=== PATIENT | male | born 1950 | race Caucasian/White ===

== ENCOUNTER 2019-06-01 17:36 | Inpatient (IN) | payer MEDICARE ==
[~2019-06-01] VITALS: Ht 175.3 cm; Wt 77.1 kg
--- NOTE | 2019-06-01 18:03 | NUR ---
OCCULT BLOOD STOOL SAMPLE NEGATIVE. EDP AWARE.
[2019-06-01 18:44] LABS: BASOPHILS 0.1 % (0-2); EOSINOPHILS 0.2 % (0-7); HEMATOCRIT 29.3 % (42.0-54.0); HEMOGLOBIN 9.8 g/dL (13.5-17.5); IMMATURE GRANULOCYTES 0.3 % (0-5); LYMPHOCYTES 6.4 % (15-50); MCH 31.6 pg (26.0-34.0); MCHC 33.4 g/dL (31.0-37.0); MCV 94.5 fL (80.0-100.0); MEAN PLATELET VOLUME 9.8 fL (7.4-10.4); PLATELET COUNT 309 10x3/uL (130-400); RDW 13.5 % (11.5-14.5); WBC 15.4 10x3/uL (4.8-10.8)
[2019-06-01 18:54] LABS: CALC OSMOLALITY 286 mosm/kg (275-300); CALCIUM 8.9 mg/dL (8.5-10.1); CARBON DIOXIDE 21.8 mmol/L (21.0-32.0); CHLORIDE - SERUM 104 mmol/L (98-107); CREATININE - SERUM 2.8 mg/dL (0.6-1.3); GLUCOSE 101 mg/dL (74-106); POTASSIUM - SERUM 4.7 mmol/L (3.5-5.1); SODIUM 139 mmol/L (136-145); UREA NITROGEN 37 mg/dL (7-18); eGFR NON AFRICAN AMERICAN 24 mL/min (90-120)
--- NOTE | 2019-06-01 18:56 | NUR ---
PT LEAVING ED FOR ORDERED TEST, TRANSPORTED VIA STRETCHER. NO SIGNS OF DISTRESS NOTED WHEN LEAVING.
--- NOTE | 2019-06-01 19:07 | NUR ---
HAND OFF REPORT GIVEN TO SANTOS GOMEZ.
[2019-06-01 19:09] LABS: ALBUMIN 3.6 g/dL (3.4-5.0); ALKALINE PHOSPHATASE 86 U/L (30-120); ALT (SGPT) 60 U/L (10-68); AMYLASE - SERUM 34 U/L (25-115); BILIRUBIN - TOTAL 0.39 mg/dL (0.2-1.3); CREATINE KINASE 94 UL (21-232); LIPASE 77 U/L (73-393); PROTEIN - SERUM 7.6 g/dL (6.4-8.2)
--- NOTE | 2019-06-01 19:40 | NUR ---
PT RETURNED FROM CT VIA STRETCHER.
--- NOTE | 2019-06-01 19:45 | NUR ---
US AT PT BEDSIDE/
--- NOTE | 2019-06-01 20:05 | NUR ---
PT UPDATED ON PLAN OF CARE. PT DENIES NEEDS AT THIS TIME.
[2019-06-01 20:06] VITALS: BP 134/68
[2019-06-01 21:00] VITALS: BP 132/74
--- NOTE | 2019-06-01 21:40 | NUR ---
PT RESTING ON BED. NO S/S OF ACUTE DISTRESS NOTED. PT WATCHING TV AND DENIES NEEDS AT THIS TIME.
[2019-06-01 22:00] VITALS: BP 138/78
--- NOTE | 2019-06-01 23:07 | NUR ---
RECIEVED TO FLOOR VIA WHEEL CHAIR, ACCOMPANIED BY STAFF. DENIES PAIN/WEAKNESS. A&O X 4, ANSWERS QUESTIONS APPROPRIATELY. POSESY MAT IN USE, WILL CONTINUE PLAN OF CARE.
[2019-06-01 23:27] VITALS: BP 128/74; BMI 25.1
--- NOTE | 2019-06-01 23:35 | NUR ---
ADMISSION ASSESSMENT COMPLETE. CARE PLANS POPULATED AND PRIORITIZED. PT RESTING AT THIS TIME IN SUPINE POSITION. WILL MONITOR FOR NEEDS.
[2019-06-02 04:30] VITALS: BP 129/68
[2019-06-02 06:41] LABS: BASOPHILS 0.2 % (0-2); EOSINOPHILS 1.5 % (0-7); HEMATOCRIT 27.8 % (42.0-54.0); HEMOGLOBIN 9.2 g/dL (13.5-17.5); IMMATURE GRANULOCYTES 0.3 % (0-5); LYMPHOCYTES 13.1 % (15-50); MCH 31.7 pg (26.0-34.0); MCHC 33.1 g/dL (31.0-37.0); MCV 95.9 fL (80.0-100.0); MEAN PLATELET VOLUME 9.8 fL (7.4-10.4); MONOCYTES 6.6 % (2-11); NEUTROPHILS 78.3 % (40-80); PLATELET COUNT 285 10x3/uL (130-400); RDW 13.4 % (11.5-14.5)
[2019-06-02 06:43] LABS: WBC 11.4 10x3/uL (4.8-10.8)
[2019-06-02 07:17] LABS: ALBUMIN 3.3 g/dL (3.4-5.0); ALKALINE PHOSPHATASE 77 U/L (30-120); ALT (SGPT) 51 U/L (10-68); AMYLASE - SERUM 31 U/L (25-115); BILIRUBIN - TOTAL 0.35 mg/dL (0.2-1.3); CALC OSMOLALITY 285 mosm/kg (275-300); CALCIUM 8.5 mg/dL (8.5-10.1); CARBON DIOXIDE 21.1 mmol/L (21.0-32.0); CHLORIDE - SERUM 108 mmol/L (98-107); CKMB 1.6 U/L (0.0-3.6); CREATINE KINASE 144 UL (21-232); CREATININE - SERUM 2.6 mg/dL (0.6-1.3); GLUCOSE 88 mg/dL (74-106); LIPASE 76 U/L (73-393); POTASSIUM - SERUM 4.1 mmol/L (3.5-5.1); SODIUM 140 mmol/L (136-145); UREA NITROGEN 34 mg/dL (7-18); eGFR NON AFRICAN AMERICAN 26 mL/min (90-120)
[2019-06-02 07:27] LABS: TROPONIN-I < 0.017 ng/mL (0.000-0.060)
[2019-06-02 09:04] VITALS: BP 131/52
[2019-06-02 10:46] LABS: CKMB 1.4 U/L (0.0-3.6); CREATINE KINASE 192 UL (21-232); TROPONIN-I 0.023 ng/mL (0.000-0.060)
[2019-06-02 11:47] LABS: CHOL - HDL RATIO 4.1 ratio (2.3-4.9); LDL-HDL RATIO 2.2 ratio (1.5-3.5)
[2019-06-02 13:20] LABS: BILIRUBIN NEGATIVE (NEGATIVE); GLUCOSE NEGATIVE (NEGATIVE); KETONE NEGATIVE (NEGATIVE); NITRITE NEGATIVE (NEGATIVE); UROBILINOGEN NORMAL (NORMAL)
[2019-06-02 13:34] VITALS: BP 123/77
[2019-06-02 15:00] VITALS: BMI 25.1
[2019-06-02 15:42] LABS: CKMB 1.6 U/L (0.0-3.6); CREATINE KINASE 188 UL (21-232); TROPONIN-I 0.024 ng/mL (0.000-0.060)
[2019-06-02 16:55] VITALS: BP 136/60
--- NOTE | 2019-06-02 19:19 | NUR ---
I have reviewed this patient and I concur with the Shift Assessment completed by the Licensed Practical Nurse today this shift.
[2019-06-02 19:30] VITALS: BP 115/66
[2019-06-02 21:27] LABS: CKMB 1.4 U/L (0.0-3.6); CREATINE KINASE 216 UL (21-232); TROPONIN-I 0.022 ng/mL (0.000-0.060)
[2019-06-03 00:39] VITALS: BP 120/72
[2019-06-03 05:12] VITALS: BP 119/78
[2019-06-03 05:16] LABS: BASOPHILS 0.2 % (0-2); EOSINOPHILS 2.9 % (0-7); HEMATOCRIT 31.3 % (42.0-54.0); HEMOGLOBIN 10.3 g/dL (13.5-17.5); IMMATURE GRANULOCYTES 0.3 % (0-5); MCH 31.4 pg (26.0-34.0); MCHC 32.9 g/dL (31.0-37.0); MCV 95.4 fL (80.0-100.0); MEAN PLATELET VOLUME 9.8 fL (7.4-10.4); MONOCYTES 6.1 % (2-11); NEUTROPHILS 76.5 % (40-80); PLATELET COUNT 289 10x3/uL (130-400); RBC 3.28 10x6/uL (4.20-6.10); RDW 13.4 % (11.5-14.5); WBC 11.1 10x3/uL (4.8-10.8)
[2019-06-03 05:43] LABS: ALBUMIN 3.7 g/dL (3.4-5.0); BILIRUBIN - TOTAL 0.25 mg/dL (0.2-1.3); CARBON DIOXIDE 23.2 mmol/L (21.0-32.0); CREATININE - SERUM 2.8 mg/dL (0.6-1.3); POTASSIUM - SERUM 4.2 mmol/L (3.5-5.1); PROTEIN - SERUM 7.5 g/dL (6.4-8.2)
--- NOTE | 2019-06-03 06:21 | NUR ---
I have reviewed this patient and I concur with the Shift Assessment completed by the Licensed Practical Nurse today this shift.
--- NOTE | 2019-06-03 07:40 | NUR ---
PT RESTING PEACEFULLY, LYING IN IN BED, EYES CLOSED, BREATHS EVEN REGULAR AND UNLABORED. NO SIGNS OR SYMTPOMS OF ACUTE DISTRESS NOTED AT THIS TIME. CL IN REACH, SRX2.
[2019-06-03 09:16] LABS: % SATURATION 42 % (15-55); IRON 98 ug/dl (35-150); TOTAL IRON BIND CAPACITY 228 ug/dl (260-445); UNSAT IRON BIND CAPACITY 130 ug/dl (150-375)
[2019-06-03 09:17] VITALS: BP 146/74
[2019-06-03 12:23] VITALS: BP 130/70
[2019-06-03 17:03] VITALS: BP 117/76
--- NOTE | 2019-06-03 17:27 | NUR ---
WITHOUT NEEDS.CALL LIGHT IN REACH.
--- NOTE | 2019-06-03 19:28 | NUR ---
OT NOTE: PT COMPLETED BED MOB WITH CGA. PT COMPLETED BUE AROM EXS. PT COMPLETED FACE WASH WITH SETUP. PT CONCERNED ABOUT RIDE AFTER D/C. SPOKE WITH NURSING. NURSING STATED WOULD NOT BE D/C TONIGHT. RELAYED MESSAGE TO PT. [phone] THANK YOU,EMMANUEL DUPONT
[2019-06-03 19:30] VITALS: BP 126/57
--- NOTE | 2019-06-03 20:32 | NUR ---
REC'D. CHGE OF SHIFT WALKING ROUNDS.WATCHING TV. DENIES ANY DISCOMFORT AT PRESENT TIME WILL CONTINUE TO MONITOR FOR ANY CHGES AND FOLLOW CURRENT PLAN OF CARE
[2019-06-04] VITALS: BP 149/80
[2019-06-04 05:00] VITALS: BP 152/72
--- NOTE | 2019-06-04 05:00 | NUR ---
I have reviewed this patient and I concur with the Shift Assessment completed by the Licensed Practical Nurse today this shift.
[2019-06-04 06:49] LABS: BASOPHILS 0.3 % (0-2); EOSINOPHILS 4.1 % (0-7); HEMOGLOBIN 10.1 g/dL (13.5-17.5); IMMATURE GRANULOCYTES 0.3 % (0-5); LYMPHOCYTES 11.9 % (15-50); MCH 31.2 pg (26.0-34.0); MCHC 32.6 g/dL (31.0-37.0); MCV 95.7 fL (80.0-100.0); MEAN PLATELET VOLUME 10.3 fL (7.4-10.4); MONOCYTES 5.7 % (2-11); NEUTROPHILS 77.7 % (40-80); PLATELET COUNT 261 10x3/uL (130-400); RBC 3.24 10x6/uL (4.20-6.10); RDW 13.6 % (11.5-14.5); WBC 10.5 10x3/uL (4.8-10.8)
[2019-06-04 07:09] LABS: ALBUMIN 3.2 g/dL (3.4-5.0); ANION GAP 15.9 mmol/L (8-16); BILIRUBIN - TOTAL 0.23 mg/dL (0.2-1.3); CALCIUM 9.1 mg/dL (8.5-10.1); CREATININE - SERUM 2.6 mg/dL (0.6-1.3); POTASSIUM - SERUM 3.9 mmol/L (3.5-5.1); PROTEIN - SERUM 7.1 g/dL (6.4-8.2)
--- NOTE | 2019-06-04 07:30 | NUR ---
PT RECEIVED LAYING IN BED, A/O. SCD'S ON. ASKING ABOUT IF HE GETS TO GO HOME TODAY. NO COMPLAINTS.
[2019-06-04 09:05] VITALS: BP 123/75
[2019-06-04 10:19] VITALS: Ht 175.3 cm; Wt 77.1 kg
--- NOTE | 2019-06-04 12:59 | NUR ---
OT NOTE: EDUCATION REGARDING WALKER USAGE AND SAFETY. PT ABLE TO AMB TO BATHROOM WITHOUT USE OF WALKER BY HOLDING ON TO BED AND DOOR FRAME; ABLE TO AMB FROM TOILET TO SINK WITH CGA FOR BALANCE, BUT PERFORMS MUCH BETTER WITH USE OF WALKER. PT STATES THAT HE HAS A WALKER AT HOME BUT DOESNT USE IT MUCH. STATES THAT HE USES WC MOST OF TIME AT HOME. ABLE TO STAND AT SINK AND PERFORM SINK HYGIENE WITH SBA; ABLE TO PERFORM TOILETING, INCLUDING HYGIENE, LE DRESSING , AND CLOTHING MGMT WITH SPV/SBA.. HE WAS ABLE TO AMB WITH WALKER GREATER THAN 100 FT TODAY AND IS VERY STEADY WITH USE OF WALKER.. REUQIRES MIN ASSIST FOR OCCASSIONAL LOSS OF BALANCE WITHOUT WALKER. LATESHA MARINO, OTR/L
[2019-06-04 13:22] VITALS: BP 150/79
--- NOTE | 2019-06-04 15:21 | NUR ---
OT NOTE: PT COMPLETED TOILETING TASKS WITH SBA. PT COMPLETED TOILETING HYGIENE WITH SETUP. PT COMPLETED ADL MOB FROM TOILET TO BED WITH CGA. PT COMPLETED BED MOB TASKS WITH SBA. PT EDUCATED ON SAFETY WITH ADL MOB . [phone] THANK YOU,EMMANUEL DUPONT
--- NOTE | 2019-06-04 15:48 | EC ---
PATIENT:HARPREET GRANT DATE OF SERVICE: 06/02/19 SEX: M MEDICAL RECORD: [id number] DATE OF : 46 LOCATION:D.MS [place] AGE OF PATIENT: 68 ADMISSION DATE: 06/02/19 REFERRING PHYSICIAN: INTERPRETING PHYSICIAN: RAMSES ROUSE MD ECHOCARDIOGRAM REPORT ECHO CHARGES 4 ECHO COMPLETE Date: 06/02/19 CLINICAL DIAGNOSIS: SYNCOPE ECHOCARDIOGRAPHIC MEASUREMENTS (adult normal given) AC root (d.<3.7cm) 2.6 cm LV Septum d (<1.2 cm> 1.0 cm Valve Excursion 1.7 cm LV Septum (systole) 1.2 cm Left Atria (s.<4.0cm> 4.2 cm LVPW d(<1.2cm) 0.9 cm RV (d.<2.3cm) 3.3 cm LVPW (sytole) 1.0 cm LV diastole(<5.6CM) 5.1 cm MV E-F(>70mm/sec) cm LV systole 4.3 cm LVOT Diameter 2.0 cm MV exc.(>10mm) cm Est.ejection fraction (50-75%) % DOPPLER: LVIT cm/sec A 47 cm/sec E 46 cm/sec LA cm/sec RVSP 24.9 mmHg LVOT 72 cm/sec AOP1/2T m/s Asc. Ao 121 cm/sec RVOT 52 cm/sec RA cm/sec PA 65 cm/sec AV Gradient Peak 5.9 mmHg AV Mean 3.5 mmHg AV Area 1.8 cm MV Gradient Peak 2.0 mmHg MV Mean 0.9 mmHg MV Area cm COMMENTS: Underground Repairer: [facility] Pvc Loader: 3 Dr. Hopkins TAPE# PACS Pericardial Effusion N DATE OF SERVICE: Adequate 2D, color flow imaging, spectral Doppler, and M-Mode. No LVH. LV internal dimensions are normal. LV appears to be mildly globally hypo with LV at lower limits of normal, mildly reduced. Estimated EF 45% to 50%. Aortic valve is tricuspid. No evidence of stenosis by Doppler interrogation. Left atrium is mildly dilated at 4.2 cm. Mitral valve shows no prolapse. Trace MR. Right-sided chambers are grossly normal. Trace TR. ECHOCARDIOGRAM REPORT [id number] HARPREET GRANT TRANSINT:[id number] Voice Confirmation ID: [id number] DOCUMENT ID: [id number] RAMSES ROUSE MD at 1548 CC: [id number] DICTATION DATE: 06/03/19 1321 PMO ANALYST: 06/03/19 1439 ADM IN [facility] [address] [id number]
[2019-06-04 17:31] VITALS: BP 130/65
--- NOTE | 2019-06-05 11:04 | MORECARE ---
CASE MANAGEMENT DISCHARGE SUMMARY PATIENT: HARPREET GRANT UNIT: [id number] ADM DATE: 06/02/19 AGE: 68 : [birth year] SEX: M ROOM/BED: D.2237 AUTHOR: MARLINE DYKES PHYSICIAN: REFERRING PHYSICIAN: RAZA HATHAWAY MD DATE OF SERVICE: 06/05/19 Discharge Plan Patient Name: HARPREET GRANT [facility] [facility] 1950 Planned Disposition: Home Anticipated Discharge Date: Discharge Date: 06/04/2019 Expected LOS: 0 Initial Reviewer: [email or web address] Initial Review Date: 06/05/2019 Generated: 06/05/19 12:04 pm Patient Name: HARPREET GRANT Page [phone] at 1104 All edits/amendments must be made on the electronic document DICTATION DATE: 06/05/19 1104 TELEMARKETING FUNDRAISER: MAURO 06/05/19 1104 RPT#: [id number] DC DATE:06/04/19 STATUS: DIS IN [facility] [address] [place] [address] END OF REPORT
--- NOTE | 2019-06-06 14:36 | CN ---
PATIENT NAME:HARPREET GRANT MEDICAL RECORD: [id number] : 46 LOCATION:D.MS [id number] ADMIT DATE: 06/02/19 ACCOUNT: [id number] CONSULTING PHYSICIAN: ESSIE PEREZ MD REFERRING PHYSICIAN: RAZA HATHAWAY MD DATE OF CONSULTATION: 06/04/2019 CARDIOLOGY CONSULTATION DIAGNOSES: 1. Syncope. 2. Hypertension. 3. Hyperlipidemia. 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 He has not had any further episodes of syncope. His EKG is normal. Troponin is normal. Telemetry has been normal since admission. He had an echocardiogram showing ejection fraction of 45% to 50%. No significant valvular disease. Normal chamber sizes. PHYSICAL EXAMINATION: CONSTITUTIONAL/GENERAL APPEARANCE: Well nourished, well developed, appears stated age. EYES: Lids and conjunctivae noninjected. No discharge. No pallor. ENT: Lips within normal limit. No cyanosis. No pallor. NECK: Carotid arteries, bilateral normal upstroke. No bruits. No thrills. No jugular venous pressure or distention. CERVICAL LYMPH NODES: Nontender. Nonenlarged. THYROID: Not enlarged. No nodules. CARDIOVASCULAR: Precordial exam, nondisplaced. No heaves or pericardial thrills. Rate and rhythm, regular. Heart sounds, normal S1, normal S2. No S3, no gallop, no rub. Systolic murmur, not heard. Diastolic murmur, not heard. RESPIRATORY: Respiratory effort, unlabored. Normal curvature. No thoracic deformity. No chest wall tenderness. Percussion, resonant. Auscultation, clear. No wheezes, no rales, no rhonchi. ABDOMEN: Soft, nondistended, nontender. No abdominal pain, no vomiting and normal appetite. MUSCULOSKELETAL: No joint tenderness, normal gait, normal tone. SKIN: Warm and dry. OVERALL IMPRESSION: Syncope, unknown etiology. No reason to believe this is cardiac in etiology. No other cardiac workup or treatment is necessary. TRANSINT:[id number] Voice Confirmation ID: [id number] DOCUMENT ID: [id number] ESSIE PEREZ MD at 1434 CC: [id number] DICTATION DATE: 06/04/19 1018 FISHER MUSSEL: 06/04/19 1416 DIS IN 06/04/19 [facility] [address] [place] [address]
== END 2019-06-04 22:01 | disposition home or self-care (01) | DRG 312 ==
LOC: D.ER 17:36 → D.MS 18:59 → OBSVTIME 18:59 → D.MS 06-02 12:45
PROVIDERS: Family Medicine; ADMIT Internal Medicine Nephrology; ATTEND Internal Medicine Nephrology
DX: R55 Syncope and collapse (principal); I50.23 Acute on chronic systolic (congestive) heart failure; N17.9 Acute kidney failure, unspecified; I25.10 Atherosclerotic heart disease of native coronary artery without angina pectoris; K57.90 Diverticulosis of intestine, part unspecified, without perforation or abscess without bleeding; D64.9 Anemia, unspecified; K59.09 Other constipation; K40.90 Unilateral inguinal hernia, without obstruction or gangrene, not specified as recurrent; I11.0 Hypertensive heart disease with heart failure